=== PATIENT | male | born 1950 | race Caucasian/White ===

== ENCOUNTER → 2016-07-20 | Outpatient (CLI) | payer BC ==
[~2016-07-20] MED LIST: ALLO300T2 PO; ASPCH81X PO; HYDR-5688 PO; LISI10TA PO; MELO15TA4 PO; ROSU40TA PO
--- NOTE | 2016-07-20 17:44 | DIAGNOSTIC IMAGING REPORT ---
MRI OF THE RIGHT KNEE CLINICAL HISTORY: Right knee pain. COMPARISON STUDY: No priors. TECHNIQUE: MRI of the right knee was performed utilizing proton density, T1, and T2-weighted sequences in the axial, sagittal, coronal planes. IV contrast was not administered for this examination. Note that interpretation is suboptimal without plain film correlate. FINDINGS: Menisci: There is a large oblique tear involving the posterior horn of the medial meniscus. The lateral meniscus appears intact. Ligaments: The anterior and posterior cruciate ligaments are intact. There is mild thickening of the medial collateral ligament. Fluid is present along both sides of ligament suggesting grade 1 injury. The lateral collateral ligament complex is within normal limits. Extensor mechanism: The extensor mechanism is intact. Hoffa's fat pad is normal in appearance. Articular cartilage and bone: There is mild (less than 50%) degenerative thinning of the articular cartilage along the weightbearing surface in the medial and lateral compartments. No full-thickness cartilage loss is identified and there is no associated marrow edema. The articular cartilage at the patellofemoral articulation is well-maintained. Joint effusion: There is a small joint effusion. Soft tissues: Deep soft tissue edema is present in the popliteal fossa antrum the popliteus muscle. The popliteus tendon is intact. The musculature surrounding the knee joint is normal in bulk and signal intensity. Prepatellar soft tissue edema is observed. IMPRESSION: 1. There is a large oblique tear involving the posterior horn of the medial meniscus. 2. Findings suggest grade 1 injury of the medial collateral ligament. 3. The lateral meniscus, the cruciate ligaments, and the lateral collateral ligament complex are preserved. 4. Small joint effusion. 5. There is nonspecific edema identified involving the deep soft tissues the popliteal fossa. Prepatellar edema is also observed. Electronically signed by: Koby Nicole M.D. 07/20/2016 5:41 PM Dictated Date/Time: 07/20/2016 5:36 PM
== END | disposition home or self-care (01) ==
LOC: C.MRIBC 15:47
PROVIDERS: ATTEND Orthopaedic Surgery
DX: S83.241A Other tear of medial meniscus, current injury, right knee, initial encounter (principal); X58.XXXA Exposure to other specified factors, initial encounter; M25.461 Effusion, right knee; R60.0 Localized edema

== ENCOUNTER → 2016-08-04 | Outpatient (CLI) | payer BC ==
--- NOTE | 2016-08-04 07:50 | DIAGNOSTIC IMAGING REPORT ---
DOUBLE CONTRAST BARIUM ESOPHAGRAM CLINICAL HISTORY: Laryngopharyngeal reflux. COMPARISON STUDY: No priors. TECHNIQUE: A standard air contrast barium esophagram is performed. Multiple spot images of the esophagus are acquired both upright and prone. FINDINGS: The patient swallowed barium and the barium pill without difficulty. The mucosal pattern is normal. There is no evidence of intrinsic or extrinsic mass lesion. No aspiration was seen. The gastroesophageal junction distended normally. Gastroesophageal reflux was observed during the examination. Fluoroscopy time: 1.3 minutes. Fluoroscopic images: 21 IMPRESSION: 1. Gastroesophageal reflux was observed. 2. Otherwise unremarkable barium esophagram. Electronically signed by: Koby Nicole M.D. 08/04/2016 7:49 AM Dictated Date/Time: 08/04/2016 7:48 AM
== END | disposition home or self-care (01) ==
LOC: C.RAD 07:06
DX: K21.9 Gastro-esophageal reflux disease without esophagitis (principal); R68.89 Other general symptoms and signs

== ENCOUNTER → 2016-08-26 | Outpatient (CLI) | payer BC ==
[2016-08-26 17:24] LABS: POTASSIUM 4.2 mmol/L (3.5-5.1)
== END | disposition home or self-care (01) ==
LOC: C.CPL 16:02
PROVIDERS: ATTEND Orthopaedic Surgery
DX: S83.241A Other tear of medial meniscus, current injury, right knee, initial encounter (principal); X58.XXXA Exposure to other specified factors, initial encounter

== ENCOUNTER → 2016-09-15 | Day surgery (SDC) | payer BC ==
[2016-08-27 10:58] VITALS: Ht 170.2 cm; Wt 82.7 kg
[~2016-09-15] VITALS: Ht 170.2 cm; Wt 82.7 kg
[~2016-09-15] MED LIST changes: +ATROPINE SULFATE 0.1 MG/ML 5ML SYR IV PRN; +BUPIVACAINE 0.5 % 5 MG/1 ML PF 10ML VIAL ONE; +CEFAZOLIN 2000 MG/60 ML D5W IV SCH; +DEXAMETHASONE SOD INJ 4 MG/ML VIAL ONE; +EpINEphrine INJ 1MG/ML AMP 1 MG/ML AMP ONE; +FENTANYL CITRATE INJ 50 MCG/1 ML 2 ML VIAL IV PRN; +FENTANYL CITRATE INJ 50 MCG/1 ML 2 ML VIAL ONE; +KETOROLAC TROMETHAMINE 30 MG/ML VIAL IV. PRN; +KETOROLAC TROMETHAMINE 30 MG/ML VIAL ONE; +LABETALOL HCL IV 5 MG/ML 20ML IV PRN; +LACTATED RINGER'S 1000ML 1,000 ML IV SCH; +LIDOCAINE HCL 2% 2 ML VIAL (20MG/ML) ONE; +MIDAZOLAM HCL 1 MG/ML 2ML VIAL ONE; +ONDANSETRON INJ 2 MG/ML 2 ML VIAL IV PRN; +ONDANSETRON INJ 2 MG/ML 2 ML VIAL ONE; +OXYCODONE/ACETAMINOPHEN 5-325 TAB PO PRN; +PROPOFOL IV EMULSION 10 MG/ML 20 ML VIAL IV ONE; +ROPIVACAINE 0.5% 5 MG/ML 30 ML VIAL ONE; +SODIUM CHLORIDE 0.9% 1000ML 1,000 ML IV SCH
--- NOTE | 2016-09-15 11:03 | History & Physical Bridge - SC ---
H&P Re-Evaluation Bridge Note: I have examined the patient, reviewed the History & Physical and in the interval since the performance of the History & Physical I have noted the following changes of clinical significance: No changes noted
--- NOTE | 2016-09-15 12:12 | [facility] Post Operative Brief Note ---
Immediate Operative Summary Operative Date Sep 15, 2016. Pre-Operative Diagnosis Right knee medial meniscus tear Post-Operative Diagnosis same as preop Procedure(s) Performed Right Knee Arthroscopy, Partial Medial Meniscectomy Surgeon Dr. Quintana Trimmer Climber Surgeon(s) JERRY Post Estimated Blood Loss 0ml Findings ABOVE Specimens none per surgeon Anesthesia LMA Complication(s) None Disposition Recovery Room / PACU
--- NOTE | 2016-09-15 12:24 | Discharge Instructions-SurgCtr ---
Discharge Instructions Date of Service Sep 15, 2016. Visit Reason for Visit: Right Knee Medial Cartilage &/Or Meniscus Tears Discharge Discharge Diagnosis / Problem: SAME ABOVE Discharge Goals Goal(s): Decrease discomfort, Improve function Activity Recommendations Activity Limitations: as noted below Lifting Limitations: until after follow-up appointment Exercise/Sports Limitations: until after follow-up appointment Weightbearing Status: Right weightbearing (as tolerated) Anesthesia . Post Anesthesia Instructions: If you have had General Anesthesia or IV Sedation: * Do not drive today. * Resume driving when surgeon permits. * Do not make important decisions or sign legal documents today. * Call surgeon for: 1. Temperature elevations greater than 101 degrees F. 2. Uncontrollable pain. 3. Excessive bleeding. 4. Persistent nausea and vomiting. 5. Medication intolerance (nausea, vomiting or rash). * For nausea and vomiting use only clear liquids such as: tea, soda, bouillon until nausea subsides, then gradually increase diet as tolerated. * If you have any concerns or questions, call your surgeon's office. If physician is unavailable and it is an emergency, call 911 or go to the nearest emergency room. . Instructions / Follow-Up Instructions / Follow-Up MEDICATIONS: * Resume previous medications unless instructed otherwise by your surgeon. * Always take pain medication on a full stomach or with food to avoid upset stomach. * Do not drink alcohol or drive while taking narcotics. * Ibuprofen or Tylenol may be taken if narcotic not needed. SPECIAL CARE INSTRUCTIONS: __ None _X_ Keep extremity elevated and iced x 48 hours; apply ice 20-30 minutes 8-10 times/day. May remove at night. __ Crutches __ May discard when able __ Brace/Post-op shoe __ 24 hrs/day __ Remove at night _X_ Dressing __ Maintain until seen in office, may shower with plastic over site _X_ Remove dressings in 24-48 hours and then may shower _X_ Cover incisions with band-aids after showering __ Do not remove steri-strips Call physician if chills or temperature rises above 102 degrees or pain unrelieved by prescribed pain medications. Office [phone] Diet Recommendations Home Diet: resume previous diet Procedures Procedures Performed: Right Knee Arthroscopy, Partial Medial Meniscectomy Pending Studies Studies pending at discharge: no Medical Emergencies . Who to Call and When: Medical Emergencies: If at any time you feel your situation is an emergency, please call 911 immediately. . Non-Emergent Contact Non-Emergency issues call your: Primary Care Provider . . "Provider Documentation" section prepared by Simone Murillo.
--- NOTE | 2016-09-15 12:54 | Anesthesia Progress Nt - [facility] ---
Anesthesia Post Op Note Date & Time Sep 15, 2016 at 12:54 Vital Signs Pain Intensity: 0 Vital Signs Past 12 Hours Date Time Temp Pulse Resp B/P Pulse Ox O2 Delivery O2 Flow Rate FiO2 09/15/16 12:25 36.4 64 14 143/93 98 Diffusion Mask 8 09/15/16 10:09 36.8 72 16 156/92 96 Room Air Notes Mental Status: alert / awake / arousable, participated in evaluation Pt Amnestic to Procedure: Yes Nausea / Vomiting: adequately controlled Pain: adequately controlled Airway Patency, RR, SpO2: stable & adequate BP & HR: stable & adequate Hydration State: stable & adequate Anesthetic Complications: no major complications apparent
--- NOTE | 2016-09-15 13:01 | OPERATIVE REPORT ---
DATE OF OPERATION: 09/15/2016 PREOPERATIVE DIAGNOSIS: Medial meniscus tear, right knee. POSTOPERATIVE DIAGNOSIS: Same. PROCEDURE: Right knee arthroscopy, partial medial meniscectomy. SURGEON: Dr. Quintana. RAISE DRILL OPERATOR: Simone Murillo PA-C. ANESTHESIOLOGIST: Dr. Valles. ANESTHESIA: LMA. DRAINS: None. COMPLICATION: None. CONDITION: The patient tolerated the procedure well and returned to the recovery room in apparent satisfactory condition. INDICATIONS FOR SURGERY: Dariusz is a 66-year-old male who has had increasing pain and discomfort in right knee consistent with medial meniscus tear per his history, his examination, and MRI. We went over treatment options and he elected to go ahead and proceed with surgery. Procedure, expected outcomes, side effects, and risks were all explained in detail. PROCEDURE IN DETAIL: The patient was taken to the OR at which time he was placed supine on the operating table, put to sleep by the anesthesia department. Examination of the knee was performed. Ligamentous monroe, it was stable. Went ahead and prepped and draped in usual sterile fashion. Began arthroscopic examination in the anteromedial and anterolateral portals. We found an interesting flap tear of the posterior horn of the medial meniscus. You could see the piece would be flipping in and out of the joint. We came in with upbiting scissors and full radius resector and trimmed it back to a stable rim. The articular surface was in good shape. The ACL, lateral compartment, and patellofemoral joint were all inspected and found to be fine. There were some crystals that were from a prior cortisone shot, everything else looked to be in great shape. The knee then was copiously irrigated. All cannulas were removed. Portals were closed with 4-0 nylon sutures. 30 mL of ropivacaine, 10 mg of Toradol, and 1 mL of epinephrine was placed in the knee joint. Placed a sterile dressing of Xeroform, 4 x 4's, ABD, Sof-Rol, and Rodney bandage, and returned back to recovery room in apparent satisfactory condition. SURGICAL FINDINGS: Include a posterior horn flap tear of the medial meniscus. I attest to the content of the Intraoperative Record and any orders documented therein. Any exceptions are noted below. JUAN
[2016-09-15 13:14] VITALS: TEMP 36.3
[2016-09-15 13:53] VITALS: BP 155/86; PULSE 68; O2SAT 95
--- NOTE | 2016-09-17 10:54 | EDITING REQUIRED CODING QUERY ---
MENISCUS TEAR To promote full compliance with coding requirements relating to patient care physician participation is requested in all cases of associate relations specialist uncertainty. Please assist us with the question(s) below: Please specify the type of Meniscus Tear by placing an "X" within the parenthesis (). If other please document type. ( x) Current Injury ( ) Old Injury ( ) Other: (Please Specify) Thank you Palma Hayward
== END | disposition home or self-care (01) ==
LOC: X.SURG 09:33
PROVIDERS: ATTEND Orthopaedic Surgery
DX: S83.241A Other tear of medial meniscus, current injury, right knee, initial encounter (principal); X58.XXXA Exposure to other specified factors, initial encounter; I10 Essential (primary) hypertension; Z98.890 Other specified postprocedural states; Z68.28 Body mass index [BMI] 28.0-28.9, adult; Z90.89 Acquired absence of other organs